=== PATIENT | female | born 1935 | race African-American/Black ===

== ENCOUNTER 2016-08-06 09:03 | Inpatient (IN) ==
[2016-08-06] MEDS ORDERED: NALOXONE 0.4 MG/ML VIAL IV STA (09:28)
[2016-08-06] MEDS ORDERED: NALOXONE 0.4 MG/ML VIAL ONE (09:29)
--- NOTE | 2016-08-06 09:57 | EKG Report ---
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
--- NOTE | 2016-08-06 10:00 | XRay Report ---
XR chest 1V portable Indication: Altered mental status Comparison: Chest x-ray 02/21/2015 Technique: Portable AP chest was performed. Findings: Somewhat asymmetric airspace disease is demonstrated involving the right mid and lower lung, but additionally the left lung base. Trace fluid is present within the minor fissure. The heart size is borderline. Atherosclerotic calcification of the aortic knob is demonstrated. Bones and soft tissues demonstrate no significant abnormalities. Vascular calcifications are not excluded within the right axillary artery. Impression: 1. Asymmetric parenchymal opacities most involving the mid and lower right lung have differential considerations including infection as well as atypical pulmonary edema. 08/06/2016 9:57 AM PROCEDURE INTERPRETED AT [facility] DEPARTMENT OF RADIOLOGY Final Report Signed by: Dr. Romaine Hooper
--- NOTE | 2016-08-06 10:02 | CT Report ---
CT head/brain wo con Indication: Altered mental status. Comparison: CT head 02/22/2015 Technique: CT of the brain was performed without administration of intravenous contrast. The CT examination was performed using one or more of the following dose reduction techniques: Automatic exposure control, adjustment of the mA and kV according to patient size, use of acute or iterative reconstruction techniques. Findings: There is no evidence of acute intracranial mass, hemorrhage, or infarction. Generalized cerebral atrophy is present. Areas of decreased attenuation within the periventricular white matter and cerebral white matter are present which could be compatible with microvascular ischemia. The basal cisterns are patent. No significant abnormality is demonstrated to involve the posterior fossa or cerebellum. Orbits and globes demonstrate no evidence of significant pathology. The paranasal sinuses are clear. No significant abnormality is demonstrated to involve the mastoid air cells. The calvarium and overlying soft tissues demonstrate no evidence of acute pathology. Previously demonstrated left occipital hematoma has resolved. Impression: 1. No CT evidence of acute intracranial pathology. 2. Generalized atrophy and findings compatible with microvascular ischemia are demonstrated. 08/06/2016 9:58 AM PROCEDURE INTERPRETED AT [facility] DEPARTMENT OF RADIOLOGY Final Report Signed by: Dr. Romaine Hooper
[2016-08-06] MEDS ORDERED: cefTRIAXone 2,000 MG in SODIUM CHLORIDE 0.9% 100 ML IV ONE (10:03)
[2016-08-06 10:57] LABS: ABG Base Excess 2.3 MMOL/L (-2.5-2.5); ABG HCO3 26.5 MMOL/L (20-26); ABG Oxygen Saturation 98.4 % (95-100); ABG PH 7.448 (7.35-7.45)
[2016-08-06 11:03] LABS: Basophils % 0.3 % (0.0-0.8); Eosinophils % 0.1 % (0.00-10.9); Hematocrit 28.5 VOL% (35.7-47.0); Hemoglobin 9.3 GM/DL (12.0-16.0); Immature Granulocytes % 1.1 %; Immature Granulocytes Absolute 0.15 #; Mean Corpuscular HGB Conc 32.6 GM/DL (32-36); Mean Corpuscular Hemoglobin 26 PG (27-34); Mean Corpuscular Volume 80.1 FL (87-102); Monocytes # 1.2 10*3/uL (0.11-0.8); Monocytes % 9.3 % (1.7-12.7); NRBC # 0.03 10*3/uL; Neutrophils # 9.9 10*3/uL (1.4-7.4); Neutrophils % 74.2 % (38.7-73.9); Platelet Count 359 T/CUMM (130-400); Red Blood Count 3.56 MC/CUMM (3.8-5.5); Red Cell Distribution Width 15.5 % (9.3-17.3); White Blood Count 13.3 T/CUMM (4-12)
[2016-08-06] MEDS ORDERED: cefTRIAXone 1,000 MG VIAL ONE (11:07)
[2016-08-06 11:23] LABS: INR 1.2; PT Patient Result 12.4 SECS; Partial Thromboplastin Time 25.9 SECS (0-40)
[2016-08-06] MEDS ORDERED: ALBUTEROL 2.5 MG/3 ML NEB RESP TX PRN (11:29)
[2016-08-06] MEDS ORDERED: ONDANSETRON 4 MG/2 ML VIAL IV PRN (11:29)
--- NOTE | 2016-08-06 11:29 | Emergency Department Note ---
Arnulfo Young Manpreet, am scribing for, and in the presence of, Eliseo Warren MD 09:30. Kelvin Young Doug C, MD, personally performed the services described in this documentation, ascribed by Hi Arredondo in my presence, and it is both accurate and complete 942 . Arrival - Arrival Chief Complaint: Altered Mental Status ED Nursing Triage Note: pt was found this am with decreased loc. pt h as o2 sats of 79 on 2l per ems Mode of Arrival: Stretcher Limitations: Altered Mental Status Source: EMS - History of Present Illness HPI Narrative: Patient is a 80-year-old black female sent to the emergency room with altered mental status. Patient apparently has had decreased responsiveness beginning today. She does have a history of dementia. There is no history of any fever or head injury. Patient is unable to provide any history whatsoever. Patient is a DNR. There is no history of any fever, respiratory or urinary symptoms according to senior care staff. Onset (ago): hour(s) Consistency: constant Severity: moderate Severity scale (1-10): 4 Allergies/Adverse Reactions: Allergies Allergy/AdvReac Type Severity Reaction Status Date / Time iodine Allergy Mild ITCHING Verified 09/26/14 13:38 Seafood Allergy Mild ITCHING Verified 09/26/14 13:38 Home Medications: Home Medications Medication Instructions Recorded Confirmed Type Aspirin EC Tab 81 mg PO DAILY 09/26/14 07/15/15 History Cholecalciferol (Vitamin D3) 5,000 unit PO DAILY 09/26/14 07/15/15 History [Vitamin D3] Docusate Sodium Cap [Colace Cap] 100 mg PO PRN PRN 09/26/14 07/15/15 History Donepezil HCl 10 mg PO BEDTIME 09/26/14 07/15/15 History Lovastatin 10 mg PO QPM 09/26/14 07/15/15 History Memantine [Namenda] 10 mg PO BID 09/26/14 07/15/15 History Multivit-Min/Iron/Folic/Lutein 1 each PO DAILY 09/26/14 07/15/15 History [Centrum Silver Women Tablet] Potassium Chloride 10 meq PO MOWEFR 09/26/14 07/15/15 History glipiZIDE [Glipizide Xl] 10 mg PO BID 09/26/14 07/15/15 History hydroCHLOROthiazide 25 mg PO DAILY 09/26/14 07/15/15 History [Hydrochlorothiazide] metFORMIN [Glucophage] 500 mg PO BID W/MEALS 09/26/14 07/15/15 History Benzonatate [Tessalon] 100 mg PO RT Q8H PRN 02/05/15 07/15/15 History Carvedilol [Coreg] 6.25 mg PO BID W/MEALS 07/15/15 07/15/15 History Isosorbide Dinitrate [Isordil] 5 mg PO TID 07/15/15 07/15/15 History Melatonin/Pyridoxine HCl (B6) 5 mg PO QPM 07/15/15 07/15/15 History [Melatonin 5 mg Tablet] Sertraline [Zoloft] 50 mg PO DAILY 07/15/15 07/15/15 History risperiDONE TAB [RisperDAL TAB] 0.5 mg PO BID 07/15/15 07/15/15 History Dextrose 50% [D50] 25 gm IV PRN PRN #0 vial 07/28/15 Rx Divalproex Sprinkle [Depakote 125 mg PO TID capsule 07/28/15 Rx Sprinkle] Gabapentin Cap/Tab [Neurontin 100 mg PO BEDTIME capsule 07/28/15 Rx Cap/Tab] Glucagon 1 mg IM PRN PRN #0 vial 07/28/15 Rx Insulin Lispro [HumaLOG] See Protocol SUBCUT BID W/MEALS ml 07/28/15 Rx LORazepam TAB [Ativan Tab] 0.5 mg PO Q8HR PRN #30 tablet 07/28/15 Rx Zaleplon [Sonata] 5 mg PO BEDTIME PRN #30 capsule 07/28/15 Rx Review of System - Review of System ROS unobtainable: due to mental status Medical,Surgical,& Family Hx - Medical History Cardio: History of: Hypertension, Cardiovascular Problems (PAD) Psychological: History of: Behavior Problems (hitting staff and wandering into other residents' rooms), Depression, Violent Behavior (hitting or combative), Psychiatric Problems (depressed mood aeb sadness, hopelessness, helplessness) No history of: Previous Suicide Attempt Neurology: History of: Cerebrovascular Accident (unknown), Dementia HEENT: History of: Eye Problem (cataract surgery approximate 2 years ago) Endocrine: History of: Diabetes Mellitus (NIDDM), Thyroid Disorder Musculoskeletal: History of: Amputation (left great toe due to circulatory problems) Reproductive: History of: Reproductive Problems (benign lumps in breasts) - Surgical History Thoracic Surgeries: Patient denies;: Organ Transplant, Lobectomy HEENT Surgeries: Surgical HX of: Tonsilectomy & Adenoidectomy - Family History Family History: Reports;: Family Cancer (1 sister breast ,1 sister back), Family Diabetes (parents,multiple siblings), Family Heart Disease (parents, multiple siblings), Family Hypertension (parents ,multiple siblings), Family Stroke (parents,multiple siblings) Denies;: Family Anesthesia Reaction - Social History Smoking Status: Never smoker Frequency of Alcohol Use: None Type of Drug Use: None Exam Vital Signs: Vital Signs Temperature 96.8 F L 08/06/16 09:15 Pulse Rate 67 08/06/16 09:15 Respiratory Rate 14 08/06/16 09:46 Blood Pressure 98/64 08/06/16 09:15 O2 Sat by Pulse Oximetry 96 08/06/16 09:15 - General Exam limited due to: ALOC, other (Patient is a GCS of 3.) General appearance: obtunded - Head Head exam: Present: atraumatic, normocephalic, normal inspection - Eye Eye exam: Present: other (Patient has negative doll's eyes.). Absent: normal appearance, PERRL (Pinpoint pupils OU) - ENT ENT exam: Present: normal exam, normal oropharynx, mucous membranes moist - Neck Neck exam: Present: normal inspection, full ROM, trachea midline. Absent: tenderness, thyromegaly - Chest Chest inspection: Present: normal inspection, symmetric chest wall rise. Absent : tenderness - Respiratory Respiratory exam: Present: normal lung sounds bilaterally. Absent: accessory muscle use, respiratory distress - Cardiovascular Cardiovascular exam: Present: regular rate, normal rhythm, normal heart sounds - Abdominal Exam Abdominal exam: Present: soft, psoas sign. Absent: distention, tenderness - Extremities Exam Extremities exam: Present: normal inspection, full ROM - Neurological Exam Neurological exam: Present: CN II-XII intact. Absent: alert, oriented X3 - Psychiatric Psychiatric exam: Present: other (Unresponsive) - Skin Skin exam: Present: warm, dry, intact, normal color. Absent: pallor Results - Labs CBC & BMP: 08/06/16 10:43 Lab Results: I have reviewed the patients labs Labs: Laboratory Tests 08/06/16 10:50 ABG pH 7.448 ABG pCO2 38.0 ABG pO2 102.0 H ABG HCO3 26.5 H ABG Total CO2 24.0 Laboratory Tests 08/06/16 10:43 WBC 13.3 H RBC 3.56 L Hgb 9.3 L Hct 28.5 L MCV 80.1 L MCH 26 L Neut % (Auto) 74.2 H Lymph % (Auto) 15.0 L Neut # (Auto) 9.9 H Kerr # (Auto) 1.2 H - EKG EKG results: interpreted by CHUCHO, sinus rhythm (86 bpm) - Impressions Right bundle branch block - Diagnostic Findings Procedure: Chest x-ray: report reviewed by me (1. Asymmetric parenchymal opacities most involving the mid and lower right lung have differential considerations including infection as well as atypical pulmonary edema.), CT: report reviewed by me (CT Head: 1. No CT evidence of acute intracranial pathology. 2> Generalized atrophy and findings complatible with microvascular ischemia are demonstarted.) Disposition Clinical Impression: Pneumonia, Metabolic encephalopathy, Severe dementia Case discussed with: patient's family Disposition: Still a Patient Condition: Guarded Time of Disposition: 11:28
[2016-08-06 11:35] LABS: Albumin 2.6 G/DL (3.4-5.0); Bilirubin,Total 0.5 MG/DL (0.2-1.0); Calcium 8.9 MG/DL (8.5-10.1); Osmolality,Calculated 292.8 MOS/KG (273-304); Potassium 3.7 MMOL/L (3.5-5.1); Total Protein 6.2 G/DL (6.4-8.3)
[2016-08-06 11:42] LABS: Troponin I Only 8.63 NG/ML (0.00-0.045)
[2016-08-06] MEDS: cefTRIAXone 1,000 MG in SODIUM CHLORIDE 0.9% 100 ML IV SCH (12:46)
[2016-08-06] MEDS: SODIUM CHLORIDE 0.45% 1,000 ML IV SCH (13:30)
[2016-08-06] MEDS: AZITHROMYCIN INJ 500 MG in SODIUM CHLORIDE 0.9% 250 ML IV SCH (13:47)
[2016-08-06] MEDS ORDERED: FUROSEMIDE 20 MG/2 ML VIAL IV ONE (14:55)
--- NOTE | 2016-08-06 15:38 | Family Practice History&Phys ---
Assessment and Plan (1) Elevated troponin Status: Acute Assessment and plan: 08/06/2016 because there is reasonably high we will going to cardiology but strictly for medical management only. Current Visit: Yes (2) Metabolic encephalopathy Status: Acute Assessment and plan: 07/07/2016 on sure of patient's normal mental status. Hopefully she will turn around with the current regimen of Current Visit: Yes (3) Pneumonia Status: Acute Assessment and plan: 08/06/2016: We are going to treat her with some medications for this. Current Visit: Yes (4) Severe dementia Status: Acute Current Visit: Yes History of Present Illness Chief complaint: Altered mental status, right pneumonia with pulmonary edema History of present illness: Ms. Cunha is a 80 year old female Came in with altered mental status. She is a DNR a patient of Dr. Eliseo Warren from the longterm. She was noted to have worsening dementia and it was felt that she may have had some hypoxia. There is a question also of right lobe pneumonia for which she is being treated. A CT scan of the head was negative. It was noted subsequent to transferring [place] that her troponin was elevated to about 8.6. Certainly could have had some myocardial ischemia or this could be related to some congestive heart failure. She is noted to be having rales at this time. Will get cardiology to hopefully manage her strictly medically considering her poor quality of life. I did go ahead and give her some Lasix to see if we could offload her a little bit. I will repeat one more set of isoenzymes in a few hours. Home Medications Medication Instructions Recorded Confirmed Type Aspirin EC Tab 81 mg PO DAILY 09/26/14 08/06/16 History Donepezil HCl 10 mg PO BEDTIME 09/26/14 08/06/16 History Lovastatin 10 mg PO BEDTIME 09/26/14 08/06/16 History Memantine [Namenda] 10 mg PO BID 09/26/14 08/06/16 History Multivit-Min/Iron/Folic/Lutein 1 each PO DAILY 09/26/14 08/06/16 History [Centrum Silver Women Tablet] Potassium Chloride 10 meq PO MOWEFR 09/26/14 08/06/16 History glipiZIDE [Glipizide Xl] 10 mg PO BID 09/26/14 08/06/16 History hydroCHLOROthiazide 12.5 mg PO DAILY 09/26/14 08/06/16 History [Hydrochlorothiazide] metFORMIN [Glucophage] 500 mg PO BID W/MEALS 09/26/14 08/06/16 History Benzonatate [Tessalon] 100 mg PO Q8HR PRN 02/05/15 08/06/16 History Carvedilol [Coreg] 6.25 mg PO BID W/MEALS 07/15/15 08/06/16 History Isosorbide Dinitrate [Isordil] 5 mg PO TID 07/15/15 08/06/16 History Divalproex Sprinkle [Depakote 125 mg PO TID capsule 07/28/15 08/06/16 Rx Sprinkle] LORazepam TAB [Ativan Tab] 0.5 mg PO Q8HR PRN #30 tablet 07/28/15 08/06/16 Rx Zaleplon [Sonata] 5 mg PO BEDTIME PRN #30 capsule 07/28/15 08/06/16 Rx Amoxicillin Cap/Tab 500 mg PO TID 08/06/16 08/06/16 History Cholecalciferol (Vitamin D3) 1,000 unit PO DAILY 08/06/16 08/06/16 History [Vitamin D3 Chew Tab] Cilostazol [Pletal] 100 mg PO BID 08/06/16 08/06/16 History Docusate Sodium 100 mg PO DAILY 08/06/16 08/06/16 History Duloxetine HCl [Duloxetine] 20 mg PO DAILY 08/06/16 08/06/16 History Gabapentin Cap/Tab [Neurontin 200 mg PO BEDTIME 08/06/16 08/06/16 History Cap/Tab] Hydrocodone/Acetaminophen 0.5 tablet PO TID 08/06/16 08/06/16 History [Hydrocodon-Acetaminophen 5-325] Melatonin 5 mg PO BEDTIME 08/06/16 08/06/16 History OLANZapine TAB [ZyPREXA Tab] 2.5 mg PO DAILY 08/06/16 08/06/16 History OLANZapine [Olanzapine] 7.5 mg PO BEDTIME 08/06/16 08/06/16 History Allergies Allergy/AdvReac Type Severity Reaction Status Date / Time iodine Allergy Mild ITCHING Verified 09/26/14 13:38 Seafood Allergy Mild ITCHING Verified 09/26/14 13:38 12 point system: reviewed and no additional remarkable complaints except as stated (Those mentioned in the history and physical. The patient is totally unresponsive and unable to give any information. The family was not in the room ) Medical,Surgical,& Family Hx - Medical History Cardio: History of: Hypertension, Cardiovascular Problems (PAD) Psychological: History of: Behavior Problems (hitting staff and wandering into other residents' rooms), Depression, Violent Behavior (hitting or combative), Psychiatric Problems (depressed mood aeb sadness, hopelessness, helplessness) No history of: Previous Suicide Attempt Neurology: History of: Cerebrovascular Accident (unknown), Dementia HEENT: History of: Eye Problem (cataract surgery approximate 2 years ago) Endocrine: History of: Diabetes Mellitus (NIDDM), Thyroid Disorder Musculoskeletal: History of: Amputation (left great toe due to circulatory problems. Right great toe amputation) Reproductive: History of: Reproductive Problems (benign lumps in breasts) - Surgical History Thoracic Surgeries: Patient denies;: Organ Transplant, Lobectomy HEENT Surgeries: Surgical HX of: Tonsilectomy & Adenoidectomy - Family History Family History: Reports;: Family Cancer (1 sister breast ,1 sister back), Family Diabetes (parents,multiple siblings), Family Heart Disease (parents, multiple siblings), Family Hypertension (parents ,multiple siblings), Family Stroke (parents,multiple siblings) Denies;: Family Anesthesia Reaction - Social History Smoking Status: Never smoker Frequency of Alcohol Use: None Type of Drug Use: None Exam - Constitutional Vitals: Period Temp Pulse Resp BP Sys/Alba Pulse Ox Last 24 Hr 96.8 F 97-97 18-23 124-150/80-81 93-100 Exam: Generally patient is obtunded not responding except moving her right arm indiscriminately HEENT neck is supple trachea midline no respiratory stridor Cardiovascular rate is somewhat irregular sinus arrhythmia. She has 1/6 systolic ejection murmur Lungs few basilar rales but no respiratory distress Abdomen is without any apparent Neurologically unable to assess tenderness, there is no distention Extremities no clubbing cyanosis or edema Results - Labs CBC & BMP: 08/06/16 10:43 08/06/16 10:43
[2016-08-06] MEDS: INSULIN LISPRO 100 UNIT/ML SUBCUT SCH (15:54)
[2016-08-06] MEDS: POTASSIUM CHLORIDE RIDER 10 MEQ in PREMIX 1 EACH IV SCH ×2 (17:08→18:45)
[2016-08-06 17:45] LABS: CKMB % 2.5 %
--- NOTE | 2016-08-06 18:23 | Cardiology Consult Note ---
History of Present Illness - Data of Consult Patient: new to practice - Consult Narrative History of present illness: Cardiology consult 80-year-old woman from the [facility] with advanced dementia admitted with altered mental status weakness and shortness of breath. EKG shows sinus rhythm with left axis deviation, right bundle branch block and ST-T wave changes. Chest x-ray shows cardiomegaly with congestive heart failure and probable right middle lobe pneumonia. BNP level 749. Initial troponin 8.63. CPK 2498 and second troponin 16.0. The patient is unresponsive. I called her primary physician Dr. Eliseo Warren and discussed the case with him. This patient is a DNR and has advanced dementia. She has no quality of life. The patient will be treated conservatively with aspirin and beta-alvaro. She does have chronic hypertension. She is a type II diabetic and takes glyburide and Glucophage. She takes Namenda and Zyprexa for her dementia. She also takes duloxetine for depression. Lab data White count 13.3 with left shift Hemoglobin 9.3 hematocrit 28.5 Sodium 144 potassium 3.7 chloride 107 CO2 26 BUN 13 creatinine 1.50 Glucose 303 ammonia 34 BNP 749 CPK 2498 with troponin XVI 0.0 EKG shows sinus rhythm with bifascicular block and ST-T wave changes. Blood pressure 130/80 Pulse is 84 and regular O2 sat 100% on 2 L the patient is unresponsive except to deep pain. Bilateral arcus decreased breath sounds with coarse rhonchi bilaterally regular rhythm with soft systolic ejection upper right sternal border. Abdomen benign nontender. Femoral pulses 2+ with left bruit. Distal pulses 1+ no edema. Impression 80-year-old woman from the custodial with advanced dementia Presents with non-Q wave MA with congestive heart failure Bifascicular block on EKG Right mid lung pneumonia Chronic hypertension Type 2 diabetes Hyperlipidemia Patient unresponsive at this time Plan IV antibiotics and nebs Aspirin 81 mg daily Lopressor 50 mg daily . CC: Eliseo Warren MD - Home Medications and Allergies Home Medications: Home Medications Medication Instructions Recorded Confirmed Type Aspirin EC Tab 81 mg PO DAILY 09/26/14 08/06/16 History Donepezil HCl 10 mg PO BEDTIME 09/26/14 08/06/16 History Lovastatin 10 mg PO BEDTIME 09/26/14 08/06/16 History Memantine [Namenda] 10 mg PO BID 09/26/14 08/06/16 History Multivit-Min/Iron/Folic/Lutein 1 each PO DAILY 09/26/14 08/06/16 History [Centrum Silver Women Tablet] Potassium Chloride 10 meq PO MOWEFR 09/26/14 08/06/16 History glipiZIDE [Glipizide Xl] 10 mg PO BID 09/26/14 08/06/16 History hydroCHLOROthiazide 12.5 mg PO DAILY 09/26/14 08/06/16 History [Hydrochlorothiazide] metFORMIN [Glucophage] 500 mg PO BID W/MEALS 09/26/14 08/06/16 History Benzonatate [Tessalon] 100 mg PO Q8HR PRN 02/05/15 08/06/16 History Carvedilol [Coreg] 6.25 mg PO BID W/MEALS 07/15/15 08/06/16 History Isosorbide Dinitrate [Isordil] 5 mg PO TID 07/15/15 08/06/16 History Divalproex Sprinkle [Depakote 125 mg PO TID capsule 07/28/15 08/06/16 Rx Sprinkle] LORazepam TAB [Ativan Tab] 0.5 mg PO Q8HR PRN #30 tablet 07/28/15 08/06/16 Rx Zaleplon [Sonata] 5 mg PO BEDTIME PRN #30 capsule 07/28/15 08/06/16 Rx Amoxicillin Cap/Tab 500 mg PO TID 08/06/16 08/06/16 History Cholecalciferol (Vitamin D3) 1,000 unit PO DAILY 08/06/16 08/06/16 History [Vitamin D3 Chew Tab] Cilostazol [Pletal] 100 mg PO BID 08/06/16 08/06/16 History Docusate Sodium 100 mg PO DAILY 08/06/16 08/06/16 History Duloxetine HCl [Duloxetine] 20 mg PO DAILY 08/06/16 08/06/16 History Gabapentin Cap/Tab [Neurontin 200 mg PO BEDTIME 08/06/16 08/06/16 History Cap/Tab] Hydrocodone/Acetaminophen 0.5 tablet PO TID 08/06/16 08/06/16 History [Hydrocodon-Acetaminophen 5-325] Melatonin 5 mg PO BEDTIME 08/06/16 08/06/16 History OLANZapine TAB [ZyPREXA Tab] 2.5 mg PO DAILY 08/06/16 08/06/16 History OLANZapine [Olanzapine] 7.5 mg PO BEDTIME 08/06/16 08/06/16 History Allergies/Adverse Reactions: Allergies Allergy/AdvReac Type Severity Reaction Status Date / Time iodine Allergy Mild ITCHING Verified 09/26/14 13:38 Seafood Allergy Mild ITCHING Verified 09/26/14 13:38 Medical,Surgical,& Family Hx - Medical History Cardio: History of: Hypertension, Cardiovascular Problems (PAD) Psychological: History of: Behavior Problems (hitting staff and wandering into other residents' rooms), Depression, Violent Behavior (hitting or combative), Psychiatric Problems (depressed mood aeb sadness, hopelessness, helplessness) No history of: Previous Suicide Attempt Neurology: History of: Cerebrovascular Accident (unknown), Dementia HEENT: History of: Eye Problem (cataract surgery approximate 2 years ago) Endocrine: History of: Diabetes Mellitus (NIDDM), Thyroid Disorder Musculoskeletal: History of: Amputation (left great toe due to circulatory problems. Right great toe amputation) Reproductive: History of: Reproductive Problems (benign lumps in breasts) - Surgical History Thoracic Surgeries: Patient denies;: Organ Transplant, Lobectomy HEENT Surgeries: Surgical HX of: Tonsilectomy & Adenoidectomy - Family History Family History: Reports;: Family Cancer (1 sister breast ,1 sister back), Family Diabetes (parents,multiple siblings), Family Heart Disease (parents, multiple siblings), Family Hypertension (parents ,multiple siblings), Family Stroke (parents,multiple siblings) Denies;: Family Anesthesia Reaction - Social History Smoking Status: Never smoker Frequency of Alcohol Use: None Type of Drug Use: None Physical Examination Vital Signs Temp Pulse Resp BP Pulse Ox 96.8 F L 67 18 98/64 96 08/06/16 09:15 08/06/16 09:15 08/06/16 09:15 08/06/16 09:15 08/06/16 09:15 Result/EKG - Labs CBC & BMP: 08/06/16 10:43 08/06/16 10:43 Labs: Laboratory Results - last 24 hr 08/06/16 08/06/16 08/06/16 13:11 15:26 15:50 POC Glucose 262 H 303 H 303 H Total Creatine Kinase CK-MB (CK-2) CK and CKMB Interp Troponin I 08/06/16 17:08 POC Glucose Total Creatine Kinase 2498 H CK-MB (CK-2) 61.7 H CK and CKMB Interp 2.5 Troponin I 16.000 H D
[2016-08-06] MEDS ORDERED: METOPROLOL TARTRATE 5 MG/5 ML VIAL IV ONE (19:01)
[2016-08-06] MEDS ORDERED: ASPIRIN 300 MG SUPP RECTAL ONE (19:01)
[2016-08-06] MEDS: ALBUTEROL/IPRATROPIUM 3 ML NEB RESP TX SCH (19:21)
[2016-08-06] MEDS: NITROGLYCERIN 2% OINT 1 INCH/GM PACK TOP SCH (22:00)
[2016-08-07] MEDS: ALBUTEROL/IPRATROPIUM 3 ML NEB RESP TX SCH ×4 (01:21→19:45)
[2016-08-07 01:55] LABS: Calcium 8.8 MG/DL (8.5-10.1); Osmolality,Calculated 296.8 MOS/KG (273-304); Potassium 4.2 MMOL/L (3.5-5.1)
[2016-08-07 01:56] LABS: CKMB % 2.4 %
[2016-08-07 01:59] LABS: Troponin I Only 21.5 NG/ML (0.00-0.045)
[2016-08-07] MEDS: MORPHINE 2 MG/1 ML SYRINGE IV PRN ×3 (04:29→23:06)
[2016-08-07 06:21] LABS: Basophils % 0.2 % (0.0-0.8); Hematocrit 29.8 VOL% (35.7-47.0); Hemoglobin 9.7 GM/DL (12.0-16.0); Immature Granulocytes % 1.7 %; Immature Granulocytes Absolute 0.22 #; Lymphocytes # 1.5 10*3/uL (1.4-4.0); Lymphocytes % 11.3 % (21.3-54.2); Mean Corpuscular HGB Conc 32.6 GM/DL (32-36); Mean Corpuscular Hemoglobin 26 PG (27-34); Mean Corpuscular Volume 79.7 FL (87-102); Mean Platelet Volume 11.4 FL (9.6-12.0); Monocytes # 1.3 10*3/uL (0.11-0.8); Monocytes % 10.1 % (1.7-12.7); NRBC # 0.08 10*3/uL; Neutrophils # 10.2 10*3/uL (1.4-7.4); Neutrophils % 76.7 % (38.7-73.9); Platelet Count 369 T/CUMM (130-400); Red Blood Count 3.74 MC/CUMM (3.8-5.5); Red Cell Distribution Width 15.7 % (9.3-17.3); White Blood Count 13.3 T/CUMM (4-12)
[2016-08-07] MEDS: INSULIN LISPRO 100 UNIT/ML SUBCUT SCH ×5 (06:59→21:21)
[2016-08-07 07:04] LABS: CKMB % 2.3 %
[2016-08-07 07:08] LABS: Troponin I Only 21.7 NG/ML (0.00-0.045)
[2016-08-07] MEDS: SODIUM CHLORIDE 0.45% 1,000 ML IV SCH ×2 (07:26→07:27)
[2016-08-07] MEDS: PANTOPRAZOLE 40 MG VIAL IV SCH (08:51)
[2016-08-07] MEDS: ASPIRIN 300 MG SUPP RECTAL SCH (08:52)
[2016-08-07] MEDS: NITROGLYCERIN 2% OINT 1 INCH/GM PACK TOP SCH ×3 (08:52→21:22)
--- NOTE | 2016-08-07 08:55 | Family Practice Progress Note ---
Family Practice - PN: Subj Interval history: Patient seen this morning. in the room. She remains unresponsive except to deep pain. She is unable to take p.o. medications am therefore going to discontinue them. Her blood pressure is up and will increase her frequency of Lopressor to twice daily and also increase her Nitropaste 1 inch every 12 hours. It is noted her cardiac causes did bump but we are going to treat her palliatively. I did discuss her this with her and he was in total agreement. Her blood sugars are running high as well and we will increase her sliding scale from a medium to high. Appreciate cardiology's assistance on this case Exam (Progress Note) - Constitutional Vitals: Period Temp Pulse Resp BP Sys/Alba Pulse Ox Last 24 Hr 96.8 F-97.7 F 72-119 2-40 124-150/73-113 85-119 Exam: Generally patient is obtunded not responding except moving her right arm indiscriminately HEENT neck is supple trachea midline no respiratory stridor Cardiovascular rate is somewhat irregular sinus arrhythmia. She has 1/6 systolic ejection murmur Lungs few basilar rales Abdomen is without any apparent Neurologically unable to assess tenderness, there is no distention Extremities no clubbing cyanosis or edema Results - Labs CBC & BMP: 08/07/16 05:52 08/07/16 01:01 Assessment and Plan (1) Elevated troponin Status: Acute Assessment and plan: 08/06/2016 because there is reasonably high we will going to cardiology but strictly for medical management only. 08/07/2016. Ices did bump but we are going to only treat her medically and a palliative way. She is unable to take any p.o. medications at this time Current Visit: Yes (2) Metabolic encephalopathy Status: Acute Assessment and plan: 07/07/2016 on sure of patient's normal mental status. Hopefully she will turn around with the current regimen of Current Visit: Yes (3) Pneumonia Status: Acute Assessment and plan: 08/06/2016: We are going to treat her with some medications for this. Current Visit: Yes (4) Severe dementia Status: Acute Current Visit: Yes
[2016-08-07] MEDS ORDERED: METOPROLOL TARTRATE 5 MG/5 ML VIAL IV SCH (09:00)
[2016-08-07] MEDS: cefTRIAXone 1,000 MG in SODIUM CHLORIDE 0.9% 100 ML IV SCH (10:40)
[2016-08-07] MEDS: ENOXAPARIN 30 MG/0.3 ML SYRINGE SUBCUT SCH (10:40)
[2016-08-07 12:26] LABS: CKMB % 2.4 %
[2016-08-07 12:27] LABS: Troponin I Only 23.3 NG/ML (0.00-0.045)
--- NOTE | 2016-08-07 12:58 | Cardiology Progress Note ---
Cardiology - PN: Subj Interval history: Cardiology note 80-year-old woman with advanced dementia, [facility]. Admitted with non-Q-wave NM. Patient is a DNR . O2 sat 98% on 2 L Blood pressure 96/60 Patient is unresponsive to verbal commands Decreased breath sounds with bibasilar rhonchi Regular rhythm with soft systolic murmur upper right sternal border Abdomen benign No leg edema Lab data White count 13.3 hemoglobin 9.7 hematocrit 29.8 Peak CPK 2360 Peak troponin 23 Impression 80-year-old woman from the long term with advanced dementia Presents with non-Q-wave NM with congestive heart failure Bifascicular block on EKG Right mid lung pneumonia Chronic hypertension Type 2 diabetes Hyperlipidemia Patient unresponsive Plan Aspirin 81 mg Lopressor 50 mg IV antibiotics and nebs Echo pending Exam (Progress Note) - Constitutional Vitals: Period Temp Pulse Resp BP Sys/Alba Pulse Ox Last 24 Hr 97.2 F-97.7 F 72-119 2-40 87-147/54-113 85-119 Result/EKG - Labs CBC & BMP: 08/07/16 05:52 08/07/16 01:01 Labs: Laboratory Results - last 24 hr 08/06/16 08/06/16 08/06/16 13:11 15:26 15:50 WBC RBC Hgb Hct MCV MCH MCHC RDW Plt Count MPV Neut % (Auto) Lymph % (Auto) [place] % (Auto) Eos % (Auto) Baso % (Auto) Neut # (Auto) Lymph # (Auto) [place] # (Auto) Eos # (Auto) Baso # (Auto) Immature Gran % Nucleated RBC % Immature Gran # Nucleated RBCs # Sodium Potassium Chloride Carbon Dioxide Anion Gap BUN Creatinine GFR Calculation BUN/Creatinine Ratio Glucose POC Glucose 262 H 303 H 303 H Calculated Osmolality Calcium Total Creatine Kinase CK-MB (CK-2) CK and CKMB Interp Troponin I 08/06/16 08/06/16 08/07/16 17:08 20:02 01:01 WBC RBC Hgb Hct MCV MCH MCHC RDW Plt Count MPV Neut % (Auto) Lymph % (Auto) [place] % (Auto) Eos % (Auto) Baso % (Auto) Neut # (Auto) Lymph # (Auto) [place] # (Auto) Eos # (Auto) Baso # (Auto) Immature Gran % Nucleated RBC % Immature Gran # Nucleated RBCs # Sodium Potassium Chloride Carbon Dioxide Anion Gap BUN Creatinine GFR Calculation BUN/Creatinine Ratio Glucose POC Glucose 274 H Calculated Osmolality Calcium Total Creatine Kinase 2498 H 2360 H CK-MB (CK-2) 61.7 H 56.9 H CK and CKMB Interp 2.5 2.4 Troponin I 16.000 H D 21.500 H D 08/07/16 08/07/16 08/07/16 01:01 05:52 05:52 WBC 13.3 H RBC 3.74 L Hgb 9.7 L Hct 29.8 L MCV 79.7 L MCH 26 L MCHC 32.6 RDW 15.7 Plt Count 369 MPV 11.4 Neut % (Auto) 76.7 H Lymph % (Auto) 11.3 L [place] % (Auto) 10.1 Eos % (Auto) 0.0 Baso % (Auto) 0.2 Neut # (Auto) 10.2 H Lymph # (Auto) 1.5 [place] # (Auto) 1.3 H Eos # (Auto) 0.0 Baso # (Auto) 0.0 Immature Gran % 1.7 Nucleated RBC % 0.6 Immature Gran # 0.22 Nucleated RBCs # 0.08 Sodium 144 Potassium 4.2 Chloride 107 Carbon Dioxide 22 Anion Gap 19.2 H BUN 18 Creatinine 2.10 H GFR Calculation 26 BUN/Creatinine Ratio 8.00 Glucose 267 H POC Glucose Calculated Osmolality 296.8 Calcium 8.8 Total Creatine Kinase 2106 H CK-MB (CK-2) 48.5 H D CK and CKMB Interp 2.3 Troponin I 21.700 H 08/07/16 08/07/16 08/07/16 07:36 11:34 12:29 WBC RBC Hgb Hct MCV MCH MCHC RDW Plt Count MPV Neut % (Auto) Lymph % (Auto) [place] % (Auto) Eos % (Auto) Baso % (Auto) Neut # (Auto) Lymph # (Auto) [place] # (Auto) Eos # (Auto) Baso # (Auto) Immature Gran % Nucleated RBC % Immature Gran # Nucleated RBCs # Sodium Potassium Chloride Carbon Dioxide Anion Gap BUN Creatinine GFR Calculation BUN/Creatinine Ratio Glucose POC Glucose 339 H 317 H Calculated Osmolality Calcium Total Creatine Kinase 1704 H CK-MB (CK-2) 41.2 H D CK and CKMB Interp 2.4 Troponin I 23.300 H
[2016-08-07] MEDS: AZITHROMYCIN INJ 500 MG in SODIUM CHLORIDE 0.9% 250 ML IV SCH (13:50)
--- NOTE | 2016-08-07 14:28 | ECHO Report ---
Dwight Cunha Exam Date: 08/07/2016 08:37 Referring Physician: Technologist: Radha Rangel RDCS Age: 80 Ht (in): 66 Wt (lb): 150 Gender: F Exam Location: [facility] Echo Indications: Altered mental status, Advanced dementia, Weakness, Shortness of breath, Non-ST elevation (NSTEMI) myocardial infarction, Heart failure, unspecified, Hyperlipidemia, unspecified, Essential (primary) hypertension, NIDDM, RML pneumonia BP: 125 / 82 HR: 118 Rhythm: Sinus Technical Quality: Fair IMPRESSIONS EF 20 %, severe global hypokinesis. Grade III/IV diastolic dysfunction (restrictive filling pattern), severely elevated filling pressures. The right ventricle is normal in size and function. Moderately increased right atrial size. Moderately increased left atrial size. Mildly thickened mitral valve. Moderate mitral annular calcification. Mild mitral valve regurgitation. Aortic valve sclerosis. Trace to mild aortic valve regurgitation. Severe tricuspid valve regurgitation. PAP60 mmHG. Trace pulmonary valve regurgitation. Normal pericardium without effusion. Normal ascending aorta dimension. Left pleural effusion. MEASUREMENTS (Male / Female) Normal Values 2D ECHO LV Diastolic Diameter PLAX 5.1 cm 4.2 - 5.9 / 3.9 - 5.3 cm LV Systolic Diameter PLAX 4.6 cm LV Fractional Shortening PLAX 9.6 % IVS Diastolic Thickness 0.8 cm 0.6 - 1.0 / 0.6 - 0.9 cm LVPW Diastolic Thickness 0.8 cm 0.6 - 1.0 / 0.6 - 0.9 cm RV Internal Dim ED PLAX 3.4 cm Aortic Root Diameter 2.7 cm LA Systolic Diameter LX 4.3 cm 3.0 - 4.0 / 2.7 - 3.8 cm DOPPLER TR Peak Velocity 350.0 cm/s TR Peak Gradient 49.0 mmHg FINDINGS Left Ventricle EF 20 %, severe global hypokinesis. Grade III/IV diastolic dysfunction (restrictive filling pattern), severely elevated filling pressures. Right Ventricle The right ventricle is normal in size and function. Right Atrium Moderately increased right atrial size. Left Atrium Moderately increased left atrial size. Mitral Valve Mildly thickened mitral valve. Moderate mitral annular calcification. Mild mitral valve regurgitation. Aortic Valve Aortic valve sclerosis. Trace to mild aortic valve regurgitation. Tricuspid Valve Morphologically normal tricuspid valve. Severe tricuspid valve regurgitation. PAP60 mmHG. Pulmonic Valve Pulmonic valve not well visualized. Trace pulmonary valve regurgitation. Pericardium Normal pericardium without effusion. Aorta Normal ascending aorta dimension. Lino Armstrong (Electronically Signed) Final Date: 07 Aug 2016 14:27
[2016-08-07] MEDS: METOPROLOL TARTRATE 5 MG/5 ML VIAL IV SCH ×2 (16:15→21:01)
[2016-08-08] MEDS: ALBUTEROL/IPRATROPIUM 3 ML NEB RESP TX SCH ×4 (00:10→19:52)
[2016-08-08] MEDS: METOPROLOL TARTRATE 5 MG/5 ML VIAL IV SCH ×3 (05:40→21:06)
--- NOTE | 2016-08-08 07:12 | Family Practice Progress Note ---
Family Practice - PN: Subj Interval history: Patient had a decent night according to her and seems to be breathing okay. She is still minimally responsive and obviously not able to take anything by mouth. A swallowing study will be ordered and I am going to repeat her chest x-ray as well. Her understands the critical nature of her illness. She is probably going to need PEG tube and I have consult to Dr. Baker but Mr. Cunha's son is going to be in touch with him today and they will discuss tube feedings. Exam (Progress Note) - Constitutional Vitals: Period Temp Pulse Resp BP Sys/Alba Pulse Ox Last 24 Hr 97.0 F-98.1 F 78-121 16-27 87-129/54-99 85-100 Exam: Objectively well-developed black female who is minimally responsive she did open her eyes wants but does not follow any commands. She was ambulatory at the senior care. Cardiovascular: Heart rates rapid but there is a 2-3 over systolic ejection murmur left base. Respiratory: She has bibasilar rales. Abdomen: Abdomen soft and nontender to palpation. Results - Labs CBC & BMP: 08/07/16 05:52 08/07/16 01:01 Lab Results: I have reviewed the past 24 hour labs Assessment and Plan (1) Non-STEMI (non-ST elevated myocardial infarction) Status: Acute Assessment and plan: 08/08/2016: Patient's blood pressure is well maintained. She did have decreased EF of 20% on echocardiogram yesterday. Patient understands the critical nature of her present illness. Current Visit: Yes (2) Pneumonia Status: Acute Assessment and plan: 08/08/2016: We will repeat chest x-ray today. Blood cultures are negative thus far. Current Visit: Yes (3) Severe dementia Status: Chronic Current Visit: Yes
--- NOTE | 2016-08-08 08:23 | XRay Report ---
Referring Physician: Vito Warren Exam: XR chest 1V portable Date: August 08, 2016 at 7:06 AM Reason: Acute dyspnea/shortness of breath Comparison: Chest one view portable August 06, 2016 Findings: The cardiac silhouette is again mildly enlarged. There are opacities within the mid and lower lung zones bilaterally. This is concerning for pulmonary edema and atelectasis, but there could also be pneumonia. No pneumothorax is identified, but there is mild to moderate bilateral pleural fluid. The osseous structures appear stable. Impression: The pulmonary opacities and pleural fluid have increased bilaterally. This is concerning for pulmonary edema and atelectasis, but there could also be pneumonia. PROCEDURE INTERPRETED AT [facility] DEPARTMENT OF RADIOLOGY Final Report Signed by: Dr. Dasha Torres
--- NOTE | 2016-08-08 08:58 | EKG Report ---
Stationary ECG Study [facility] Test Date: 08/08/2016 8:57:39 AM Pat Name: AMY TODD Department: Room: 216 Gender: F Nonprofit Director: OVIDIO : [id number] Requested by: Mony Alexis Order Number: [id number] Reading MD: NATALIA STODDARD Intervals [place] Rate: 122 P: 99 [place]: 167 QRS: -52 QRSD: 102 T: 137 QT: 432 QTc: 505 Interpretive Statements SINUS TACHYCARDIA WITH FREQUENT PREMATURE COMPLEXES (VENTRICULAR vs SUPRAVENTRICULAR) MARKED LEFT AXIS DEVIATION LOW QRS VOLTAGE IN PRECORDIAL LEADS INCOMPLETE RIGHT BUNDLE BRANCH BLOCK MODERATE T-WAVE ABNORMALITY, CONSIDER LATERAL ISCHEMIA BASELINE ARTIFACT. Electronically Signed On 08-08-16 11:50:51 CDT by NATALIA STODDARD [email or web address]
[2016-08-08] MEDS: INSULIN LISPRO 100 UNIT/ML SUBCUT SCH ×4 (09:08→21:00)
[2016-08-08] MEDS: SODIUM CHLORIDE 0.45% 1,000 ML IV SCH (09:09)
[2016-08-08] MEDS: ASPIRIN 300 MG SUPP RECTAL SCH (09:10)
[2016-08-08] MEDS: NITROGLYCERIN 2% OINT 1 INCH/GM PACK TOP SCH ×2 (09:10→21:07)
[2016-08-08] MEDS: cefTRIAXone 1,000 MG in SODIUM CHLORIDE 0.9% 100 ML IV SCH (09:10)
[2016-08-08] MEDS: PANTOPRAZOLE 40 MG VIAL IV SCH (09:10)
[2016-08-08] MEDS: ENOXAPARIN 30 MG/0.3 ML SYRINGE SUBCUT SCH (09:10)
[2016-08-08 09:13] LABS: Basophils % 0.2 % (0.0-0.8); Hematocrit 31.6 VOL% (35.7-47.0); Hemoglobin 10.6 GM/DL (12.0-16.0); Immature Granulocytes % 1.1 %; Lymphocytes # 2.1 10*3/uL (1.4-4.0); Lymphocytes % 11.5 % (21.3-54.2); Mean Corpuscular HGB Conc 33.5 GM/DL (32-36); Mean Corpuscular Hemoglobin 26 PG (27-34); Mean Corpuscular Volume 78.4 FL (87-102); Mean Platelet Volume 10.7 FL (9.6-12.0); Monocytes # 2.8 10*3/uL (0.11-0.8); Monocytes % 15.3 % (1.7-12.7); NRBC # 0.73 10*3/uL; Neutrophils # 13.2 10*3/uL (1.4-7.4); Neutrophils % 71.9 % (38.7-73.9); Platelet Count 378 T/CUMM (130-400); Red Blood Count 4.03 MC/CUMM (3.8-5.5); Red Cell Distribution Width 15.7 % (9.3-17.3); White Blood Count 18.3 T/CUMM (4-12)
[2016-08-08] MEDS: AZITHROMYCIN 250 MG TABLET PO SCH (09:48)
--- NOTE | 2016-08-08 09:51 | Cardiology Progress Note ---
Jake Young Vanessa, RN, am scribing for, and in the presence of, Mony Alexis MD 09:16. Assessment and Plan - Time spent with patient Time spent with patient: Greater than 30 minutes (1) Non-STEMI (non-ST elevated myocardial infarction) Status: Acute Assessment and plan: SEE PLAN OF CARE LISTED BELOW. Current Visit: Yes (2) Hypertension Status: Chronic Assessment and plan: SEE PLAN OF CARE LISTED BELOW. Current Visit: No (3) Diabetes Status: Chronic Assessment and plan: SEE PLAN OF CARE LISTED BELOW. Current Visit: No (4) Anemia Status: Acute Assessment and plan: SEE PLAN OF CARE LISTED BELOW. Current Visit: No Qualifiers: Anemia type: unspecified type Qualified Code(s): D64.9 - Anemia, unspecified (5) Dementia, Alzheimer's, with behavior disturbance Status: Chronic Assessment and plan: SEE PLAN OF CARE LISTED BELOW. Current Visit: No (6) Pneumonia Status: Acute Assessment and plan: SEE PLAN OF CARE LISTED BELOW. Current Visit: Yes Cardiology - PN: Subj Interval history: PRIMARY TOOL DIE MAKER: DR. PRESTON (NEW) PCP: DR. MARGY CHANDLER CARDIOLOGY CONSULT NOTE: NSTEMI, PNEUMONIA, ADVANCED DEMENTIA SUMMARY: Ms. Cunha is a 80-year-old black female who is a skilled nursing resident with advanced dementia and is a DO NOT RESUSCITATE. Risk factors significant for: Advanced age, hypertension, diabetes, family CAD. Past medical history includes CVA, PAD, thyroid disorder. Patient was admitted to hospital on 08/[address] Chandler's service with altered mental status. Chest x-ray with atypical pulmonary edema, and CT of the head without acute process or ischemic finding. Since admission, serial cardiac biomarkers have revealed evidence of NSTEMI initial troponin of 8.6 trending up to 23 with positive CPK and MB. Patient also has a right lung pneumonia and is being treated with IV antibiotics. Echocardiogram on 08/06 LV ejection fraction of 20% with severe global hypokinesis. Due to age, advanced dementia she is not a candidate for cardiac catheterization and has been treated medically. She is currently not taking any oral medications. On exam, she opens eyes only to verbal stimuli but does not interact or have purposeful response. No family is present. Patient is scheduled for a swallowing study today and will most likely need PEG tube placement in the near future. Chest x-ray today with increased pulmonary opacities suggestive of pulmonary edema/effusion. We have attempted to speak with regarding patient's condition and prognosis, but he is not present this morning. I tried to phone him, there was no answer. We also attempted to reach patient's sister by telephone, but number provided in record is a disconnected phone number. ASSESSMENT/PLAN: 1. NSTEMI-this is being managed medically due to the patient's comorbidities, dementia, p.o. tolerance from the mental status. 2. CHF-on exam she does not appear to be volume overloaded. We will need to continue to watch her fluid status. Because of her mental status she does not take a lot of oral fluids. 3. HYPERTENSION- Blood pressure appears to be well controlled at this time. Continue to monitor closely and adjust medication regimen accordingly. 4. TACHYCARDIA- We will monitor ECG close and observe for atrial fibrillation or other arrhythmia. 5. DEMENTIA- Known history of advanced dementia with decreased responsiveness this admission.The degree and chronicity of this is not clear to me. I tried to reach family to clarify this, nursing is also unclear about this. Dr. Chandler knows the patient and is handling this. 6. ANEMIA- Chronicity of this is unknown. 7. DIABETES - Continue current plan of care. 8. HYPERLIPIDEMIA - Continue current plan of care. 9. Renal insufficiency-this appears to be somewhat acute on chronic, we will follow her creatinine. Exam (Progress Note) - Constitutional Vitals: Period Temp Pulse Resp BP Sys/Alba Pulse Ox Last 24 Hr 97.0 F-98.1 F 78-121 16-27 87-129/54-99 91-100 Exam: General appearance: normal weight, no acute distress - Head Head exam: Present: normal inspection, normocephalic, atraumatic. Absent: hematoma, laceration - Eye Eye exam: Present: EOMI. Absent: conjunctival injection, nystagmus, periorbital swelling, scleral icterus, laceration to eyelids Pupils: Present: PERRL. Absent: constricted, dilated, fixed, irregular, unequal - ENT ENT exam: Present: normal exam, normal external ear exam - Neck Neck exam: Present: normal inspection. Absent: lymphadenopathy, meningismus, tenderness, thyromegaly - Respiratory Respiratory exam: Present: clear to auscultation bilaterally. Absent: accessory muscle use, chest wall tenderness - Cardiovascular Cardiovascular exam: Present: Tachycardic rate with seemingly regular rhythm. Absent: carotid bruit, gallop, JVD, rubs - GI/Abdominal GI/Abdominal exam: Present: normal bowel sounds, soft. Absent: distended, firm , guarding, hernia, mass, tenderness, rebound. - Extremities Exam Extremities exam: Present: Right foot is wrapped in gauze, there are decreased bilateral pulses. Absent: calf tenderness, edema - Back Exam Back exam: Present: normal inspection. Absent: muscle spasm, vertebral tenderness - Neurological Exam Neurological exam: Nonconversant, not interactive, opens eyes but no deliberate interaction, without resting or intention tremor - Psychiatric Psychiatric exam: Unable to assess due to mental status - Skin Skin exam: Present: normal color, warm, dry, intact, right foot is wrapped in gauze. Result/EKG - Labs CBC & BMP: 08/07/16 05:52 08/07/16 01:01 Lab Results: I have reviewed the past 24 hour labs Labs: Laboratory Results - last 24 hr 08/07/16 08/07/16 08/07/16 11:34 12:29 15:49 POC Glucose 317 H 322 H Total Creatine Kinase 1704 H CK-MB (CK-2) 41.2 H D CK and CKMB Interp 2.4 Troponin I 23.300 H 08/07/16 20:36 POC Glucose 241 H Total Creatine Kinase CK-MB (CK-2) CK and CKMB Interp Troponin I - Diagnostic Findings Procedure: Chest x-ray: image reviewed by me, report reviewed by me - EKG EKG results: interpreted by me EKG shows: tachycardia (Sinus tachycardia) IReuben Jennifer, MD, personally performed the services described in this documentation, ascribed by Carrol Joseph RN in my presence, and it is both accurate and complete .
[2016-08-08 09:56] LABS: Calcium 8.9 MG/DL (8.5-10.1); Magnesium 1.9 MG/DL (1.8-2.4); Osmolality,Calculated 301.6 MOS/KG (273-304); Potassium 3.9 MMOL/L (3.5-5.1)
--- NOTE | 2016-08-08 11:33 | Physician Query Form ---
CLICK EDIT DOCUMENT TO SELECT QUERY ANSWER --> OK --> SIGN Zully Voss RN Clinical Bookkeeping Manager W) [phone] (f) [phone] [email or web address] PROVIDERS: Make your selection(s) from the choices in EACH section by typing an "x" and enter comments in the comment section. Please use your independent medical judgment in providing your response. This request does not imply that any particular answer is desired or expected. CLINICAL INDICATORS: (Providers should not edit this section) Based on lab results of creatinine on admission of 1.50 and increased to 2.60 with a GFR of 20. Pt. treated with IV fluids of 1/2 Normal Saline. Clarify which of the following most accurately represents the patient's renal status: ( ) Acute kidney injury (non-traumatic) ( ) Acute renal failure (x ) Acute renal failure with underlying Chronic Kidney Disease (CKD) - please provide stage below ( ) CKD - please provide stage below ( ) Other, please specify: ( ) Clinically unable to determine Chronic Kidney Disease Stages Source: National Kidney Disease Foundation ( ) Stage I (eGFR > or = 90) ( ) Stage II (eGFR 60 - 89) ( ) Stage III (eGFR 30 - 59) (x ) Stage IV (eGFR 15 - 29) ( ) Stage V (eGFR < 15 or dialysis) COMMENTS: PLEASE ALSO DOCUMENT RESPONSE IN PROGRESS NOTES AND/OR DISCHARGE SUMMARY Use of terms such as suspected, likely, or probable (associated with a specific diagnosis that is being evaluated, monitored, or treated as if it exists) are acceptable and can be restated in the discharge summary if not ruled out. MTDD
--- NOTE | 2016-08-08 11:39 | Physician Query Form ---
CLICK EDIT DOCUMENT TO SELECT QUERY ANSWER --> OK --> SIGN Zully Voss RN Clinical Pin Inserter Regulator W) [phone] (f) [phone] [email or web address] PROVIDERS: Make your selection(s) from the choices in EACH section by typing an "x" and enter comments in the comment section. Please use your independent medical judgment in providing your response. This request does not imply that any particular answer is desired or expected. CLINICAL INDICATORS: (Providers should not edit this section) Based on documentation of "CHF", [id number], Echo showed EF of 20% with Grade III/ IV diastolic dysfunction. Pt. treated with IV Lasix. Please provide further specificity regarding CHF. ACUITY: (x ) Acute ( ) Chronic ( ) Acute on Chronic ( ) Clinicallly unable to determine TYPE: ( ) Systolic (HFrEF - heart failure with reduced systolic function/EF) ( ) Diastolic (HFpEF - heart failure with preserved systolic function/EF) (x ) Combined Systolic/Diastolic ( ) Other, please specify: ( ) Clinically unable to determine ( ) The patient does NOT have CHF COMMENTS: PLEASE ALSO DOCUMENT RESPONSE IN PROGRESS NOTES AND/OR DISCHARGE SUMMARY Use of terms such as suspected, likely, or probable (associated with a specific diagnosis that is being evaluated, monitored, or treated as if it exists) are acceptable and can be restated in the discharge summary if not ruled out. MTDD
[2016-08-08] MEDS: COLLAGENASE OINT 30 GM TUBE TOP SCH (12:35)
[2016-08-08] MEDS: DESITIN 4OZ/NYSTATIN 15 GRAM MIXTURE PASTE TOP SCH ×2 (12:36→21:14)
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
[2016-08-09] MEDS: ALBUTEROL/IPRATROPIUM 3 ML NEB RESP TX SCH ×4 (01:55→19:34)
[2016-08-09] MEDS: METOPROLOL TARTRATE 5 MG/5 ML VIAL IV SCH ×3 (05:07→21:10)
[2016-08-09] MEDS ORDERED: FUROSEMIDE 40 MG/4 ML VIAL IV ONE (07:13)
[2016-08-09 07:17] LABS: Basophils % 0.1 % (0.0-0.8); Hematocrit 30.1 VOL% (35.7-47.0); Hemoglobin 9.8 GM/DL (12.0-16.0); Immature Granulocytes % 2.2 %; Immature Granulocytes Absolute 0.31 #; Lymphocytes # 1.9 10*3/uL (1.4-4.0); Lymphocytes % 13.4 % (21.3-54.2); Mean Corpuscular HGB Conc 32.6 GM/DL (32-36); Mean Corpuscular Hemoglobin 26 PG (27-34); Mean Corpuscular Volume 78.6 FL (87-102); Mean Platelet Volume 11.4 FL (9.6-12.0); Monocytes # 1.4 10*3/uL (0.11-0.8); NRBC # 1.88 10*3/uL; Neutrophils # 10.2 10*3/uL (1.4-7.4); Neutrophils % 74.3 % (38.7-73.9); Platelet Count 343 T/CUMM (130-400); Red Blood Count 3.83 MC/CUMM (3.8-5.5); White Blood Count 13.8 T/CUMM (4-12)
--- NOTE | 2016-08-09 07:17 | Family Practice Progress Note ---
Family Practice - PN: Subj Interval history: Patient had a good night according to her and certainly sleeping soundly. Chest x-ray yesterday shows increased pleural effusions bilaterally and she certainly appears wet. I have ordered a repeat BMP and I will give her 1 dose of Lasix this morning. She is still unresponsive which is been present since admission. Exam (Progress Note) - Constitutional Vitals: Period Temp Pulse Resp BP Sys/Alba Pulse Ox Last 24 Hr 96.7 F-98.8 F 74-124 16-22 97-123/56-79 94-100 Exam: Objectively well-developed black female who is minimally responsive this morning. She would not open her eyes to speech. Cardiovascular: Heart rates rapid but there is a 2-3 over systolic ejection murmur left base. Respiratory: She has bibasilar rales. Abdomen: Abdomen soft and nontender to palpation. Results - Labs CBC & BMP: 08/08/16 09:03 08/08/16 09:03 Lab Results: I have reviewed the past 24 hour labs - Diagnostic Findings Procedure: Chest x-ray: report reviewed by me (Chest x-ray yesterday shows bilateral pleural effusions and pulmonary vascular congestion.) Assessment and Plan (1) Non-STEMI (non-ST elevated myocardial infarction) Status: Acute Assessment and plan: 08/08/2016: Patient's blood pressure is well maintained. She did have decreased EF of 20% on echocardiogram yesterday. Patient understands the critical nature of her present illness. 08/09/2016: Patient's vital signs are stable and she has no dyspnea at rest this morning. Current Visit: Yes (2) Pneumonia Status: Acute Assessment and plan: 08/08/2016: We will repeat chest x-ray today. Blood cultures are negative thus far. 08/09/2016: Patient's cultures were all negative. I suspect she may have an atypical pulmonary edema. Current Visit: Yes (3) Severe dementia Status: Chronic Assessment and plan: 08/09/2016: This is a chronic problem Current Visit: Yes
[2016-08-09 07:38] LABS: Band Neutrophils 2 % (0-10); Giant Platelets Few; Hypochromasia 1+; Lymphocytes 12 % (20-55); Nucleated Red Blood Cells 18 (0-5); Platelet Estimate Adequate; Segmented Neutrophils 75 % (50-85); Total Cells Counted 100
[2016-08-09 07:55] LABS: Calcium 8.8 MG/DL (8.5-10.1); Magnesium 2.2 MG/DL (1.8-2.4); Osmolality,Calculated 312.4 MOS/KG (273-304); Potassium 4.4 MMOL/L (3.5-5.1)
[2016-08-09] MEDS ORDERED: FUROSEMIDE 40 MG/4 ML VIAL IV SCH (08:00)
--- NOTE | 2016-08-09 10:12 | Gastrointestinal Progress Note ---
Assessment and Plan (1) Failure to thrive Status: Acute Assessment and plan: 08/09-No changes in current status. Awaiting speech therapy evaluation. Plan and addendum to follow by Dr Baker. 08/08-history of dementia with recent decline in mental status and onset of pneumonia. No oral intake at this time. Speech therapy evaluation pending. Noted to be on Pletal. Possible PEG placement following ST eval and further discussion with family members. Plan an addendum to followed by Dr. Baker. Current Visit: Yes Gastroenterology - PN: Subj Interval history: CC: Failure to thrive Patient is seen lying in bed with spouse at side. She had an uneventful night per spouse. She still unresponsive to family and staff. She does not open eyes but does move around to verbal/tactile stimuli. She has not had speech therapy evaluation at this point and uncertain as to if patient is able to participate with this at this point. Abdomen is soft, nontender. ROS: No acute distress noted Exam (Progress Note) - Constitutional Vitals: Period Temp Pulse Resp BP Sys/Alba Pulse Ox Last 24 Hr 96.7 F-98.8 F 74-124 16-22 97-123/56-79 96-100 General appearance: normal weight, no acute distress - Head Head exam: Present: normal inspection, normocephalic - Eye Eye exam: Present: other (lids and conjunctiva unremarkable). Absent: scleral icterus - ENT ENT exam: Present: normal exam, normal oropharynx - Neck Neck exam: Present: normal inspection - Respiratory Respiratory exam: Present: clear to auscultation bilaterally. Absent: rales, rhonchi, wheezes - Cardiovascular Cardiovascular exam: Present: regular rate and rhythm. Absent: diastolic murmur , JVD, systolic murmur - GI/Abdominal GI/Abdominal exam: Present: normal bowel sounds, soft. Absent: ascites, distended, mass, organomegaly, tenderness - Extremities Exam Extremities exam: Present: normal inspection, full ROM - Back Exam Back exam: Present: normal inspection - Neurological Exam Neurological exam: Present: alert, altered - Psychiatric Psychiatric exam: Present: other - Skin Skin exam: Present: normal color, warm, dry Results - Labs CBC & BMP: 08/09/16 07:02 08/09/16 07:02 Lab Results: I have reviewed the past 24 hour labs
[2016-08-09] MEDS: INSULIN LISPRO 100 UNIT/ML SUBCUT SCH ×4 (10:42→21:09)
[2016-08-09] MEDS: PANTOPRAZOLE 40 MG VIAL IV SCH (10:43)
[2016-08-09] MEDS: ENOXAPARIN 30 MG/0.3 ML SYRINGE SUBCUT SCH (10:43)
[2016-08-09] MEDS: NITROGLYCERIN 2% OINT 1 INCH/GM PACK TOP SCH ×2 (10:47→21:10)
[2016-08-09] MEDS: COLLAGENASE OINT 30 GM TUBE TOP SCH (10:48)
[2016-08-09] MEDS: DESITIN 4OZ/NYSTATIN 15 GRAM MIXTURE PASTE TOP SCH ×2 (10:48→21:10)
[2016-08-09] MEDS: AZITHROMYCIN 250 MG TABLET PO SCH (10:49)
[2016-08-09] MEDS: cefTRIAXone 1,000 MG in SODIUM CHLORIDE 0.9% 100 ML IV SCH (11:58)
[2016-08-09] MEDS: ASPIRIN 300 MG SUPP RECTAL SCH (12:25)
[2016-08-09] MEDS: SODIUM CHLORIDE 0.45% 1,000 ML IV SCH (17:56)
--- NOTE | 2016-08-09 20:20 | Cardiology Progress Note ---
Jake Young Vanessa, RN, am scribing for, and in the presence of, Mony Alexis MD 20:20. Assessment and Plan - Time spent with patient Time spent with patient: Greater than 30 minutes (1) Non-STEMI (non-ST elevated myocardial infarction) Status: Acute Assessment and plan: SEE PLAN OF CARE LISTED BELOW. Current Visit: Yes (2) Hypertension Status: Chronic Assessment and plan: SEE PLAN OF CARE LISTED BELOW. Current Visit: No (3) Diabetes Status: Chronic Assessment and plan: SEE PLAN OF CARE LISTED BELOW. Current Visit: No (4) Anemia Status: Acute Assessment and plan: SEE PLAN OF CARE LISTED BELOW. Current Visit: No Qualifiers: Anemia type: unspecified type Qualified Code(s): D64.9 - Anemia, unspecified (5) Dementia, Alzheimer's, with behavior disturbance Status: Chronic Assessment and plan: SEE PLAN OF CARE LISTED BELOW. Current Visit: No (6) Pneumonia Status: Acute Assessment and plan: SEE PLAN OF CARE LISTED BELOW. Current Visit: Yes Cardiology - PN: Subj Interval history: PRIMARY FULL STACK SOFTWARE DEVELOPER: DR. PRESTON (NEW) PCP: DR. MARGY CHANDLER CARDIOLOGY CONSULT NOTE: NSTEMI, PNEUMONIA, ADVANCED DEMENTIA SUMMARY: Ms. Cunha is a 80-year-old black female who is a [facility] resident with advanced dementia and is a DO NOT RESUSCITATE. Risk factors significant for: Advanced age, hypertension, diabetes, family CAD. Past medical history includes CVA, PAD, thyroid disorder. Patient was admitted to hospital on 08/[address] Chandler's service with altered mental status. Chest x-ray with atypical pulmonary edema, and CT of the head without acute process or ischemic finding. Since admission, serial cardiac biomarkers have revealed evidence of NSTEMI initial troponin of 8.6 trending up to 23 with positive CPK and MB. Patient also has a right lung pneumonia and is being treated with IV antibiotics. Echocardiogram on 08/06 LV ejection fraction of 20% with severe global hypokinesis. Due to age, advanced dementia she is not a candidate for cardiac catheterization and has been treated medically. She is currently not taking any oral medications. AUGUST 09, 2016: Ms. Cunha is seen resting quietly without distress this morning. Her is present at bedside. According to patient's , patient rested well overnight without distress or difficulty. Patient has been evaluated by gastroenterology for PEG tube placement, and reports this morning that this is not something he and family wish to pursue at this time. Chest x-ray yesterday with increased pulmonary congestion, and she is receiving IV Lasix dose this morning. [id number] mmHg. Slightly tachycardic, pulse rates 80-110. WBC decreased today to 13,800 from 18,300. Creatinine trending upward, and today is increased from 2.6 to 2.8. Creatinine was 1.5 on admission 08/06. ASSESSMENT/PLAN: 1. NSTEMI-this is being managed medically due to the patient's comorbidities, dementia, p.o. tolerance from the mental status. 2. CHF-on exam she does not appear to be volume overloaded. We will need to continue to watch her fluid status. Because of her mental status she does not take a lot of oral fluids. 3. HYPERTENSION- Blood pressure appears to be well controlled at this time. Continue to monitor closely and adjust medication regimen accordingly. 4. TACHYCARDIA- We will monitor ECG close and observe for atrial fibrillation or other arrhythmia. 5. DEMENTIA- Known history of advanced dementia with decreased responsiveness this admission.The degree and chronicity of this is not clear to me. I tried to reach family to clarify this, nursing is also unclear about this. Dr. Chandler knows the patient and is handling this. 6. ANEMIA- Chronicity of this is unknown. 7. DIABETES - Continue current plan of care. 8. HYPERLIPIDEMIA - Continue current plan of care. 9. RENAL INSUFFICIENCY-this appears to be somewhat acute on chronic, we will follow her creatinine. Exam (Progress Note) - Constitutional Vitals: Period Temp Pulse Resp BP Sys/Alba Pulse Ox Last 24 Hr 96.7 F-98.8 F 74-124 16-22 97-123/56-79 94-100 Exam: General appearance: normal weight, no acute distress - Head Head exam: Present: normal inspection, normocephalic, atraumatic. Absent: hematoma, laceration - Eye Eye exam: Present: EOMI. Absent: conjunctival injection, nystagmus, periorbital swelling, scleral icterus, laceration to eyelids Pupils: Present: PERRL. Absent: constricted, dilated, fixed, irregular, unequal - ENT ENT exam: Present: normal exam, normal external ear exam - Neck Neck exam: Present: normal inspection. Absent: lymphadenopathy, meningismus, tenderness, thyromegaly - Respiratory Respiratory exam: Present: clear to auscultation bilaterally. Absent: accessory muscle use, chest wall tenderness - Cardiovascular Cardiovascular exam: Present: Tachycardic rate with seemingly regular rhythm. Absent: carotid bruit, gallop, JVD, rubs - GI/Abdominal GI/Abdominal exam: Present: normal bowel sounds, soft. Absent: distended, firm , guarding, hernia, mass, tenderness, rebound. - Extremities Exam Extremities exam: Present: Right foot is wrapped in gauze, there are decreased bilateral pulses. Absent: calf tenderness, edema - Back Exam Back exam: Present: normal inspection. Absent: muscle spasm, vertebral tenderness - Neurological Exam Neurological exam: Nonconversant, not interactive, opens eyes but no deliberate interaction, without resting or intention tremor - Psychiatric Psychiatric exam: Unable to assess due to mental status - Skin Skin exam: Present: normal color, warm, dry, intact, right foot is wrapped in gauze. Result/EKG - Labs CBC & BMP: 08/09/16 07:02 08/09/16 07:02 Lab Results: I have reviewed the past 24 hour labs Labs: Laboratory Results - last 24 hr 08/08/16 08/08/16 08/08/16 07:33 09:03 09:03 WBC 18.3 H D RBC 4.03 Hgb 10.6 L Hct 31.6 L MCV 78.4 L MCH 26 L MCHC 33.5 RDW 15.7 Plt Count 378 MPV 10.7 Neut % (Auto) 71.9 Lymph % (Auto) 11.5 L Kershaw % (Auto) 15.3 H Eos % (Auto) 0.0 Baso % (Auto) 0.2 Neut # (Auto) 13.2 H Lymph # (Auto) 2.1 [place]haw # (Auto) 2.8 H Eos # (Auto) 0.0 Baso # (Auto) 0.0 Immature Gran % 1.1 Nucleated RBC % 4.0 Immature Gran # 0.20 Nucleated RBCs # 0.73 Sodium 146 H Potassium 3.9 Chloride 108 H Carbon Dioxide 24 Anion Gap 17.9 H BUN 36 H Creatinine 2.60 H GFR Calculation 20 BUN/Creatinine Ratio 13.00 Glucose 170 H POC Glucose 168 H Calculated Osmolality 301.6 Calcium 8.9 Magnesium 1.9 08/08/16 08/08/16 08/08/16 10:48 17:27 19:06 WBC RBC Hgb Hct MCV MCH MCHC RDW Plt Count MPV Neut % (Auto) Lymph % (Auto) [place] % (Auto) Eos % (Auto) Baso % (Auto) Neut # (Auto) Lymph # (Auto) [place] # (Auto) Eos # (Auto) Baso # (Auto) Immature Gran % Nucleated RBC % Immature Gran # Nucleated RBCs # Sodium Potassium Chloride Carbon Dioxide Anion Gap BUN Creatinine GFR Calculation BUN/Creatinine Ratio Glucose POC Glucose 186 H 175 H 160 H Calculated Osmolality Calcium Magnesium 08/09/16 07:02 WBC 13.8 H RBC 3.83 Hgb 9.8 L Hct 30.1 L MCV 78.6 L MCH 26 L MCHC 32.6 RDW 16.0 Plt Count 343 MPV 11.4 Neut % (Auto) 74.3 H Lymph % (Auto) 13.4 L [place] % (Auto) 10.0 Eos % (Auto) 0.0 Baso % (Auto) 0.1 Neut # (Auto) 10.2 H Lymph # (Auto) 1.9 [place]ershaw # (Auto) 1.4 H Eos # (Auto) 0.0 Baso # (Auto) 0.0 Immature Gran % 2.2 Nucleated RBC % 13.6 Immature Gran # 0.31 Nucleated RBCs # 1.88 Sodium Potassium Chloride Carbon Dioxide Anion Gap BUN Creatinine GFR Calculation BUN/Creatinine Ratio Glucose POC Glucose Calculated Osmolality Calcium Magnesium - Diagnostic Findings Procedure: Chest x-ray: image reviewed by me, report reviewed by me - EKG EKG results: interpreted by me, no acute changes EKG shows: tachycardia (sinus tachycardia) IReuben Jennifer, MD, personally performed the services described in this documentation, ascribed by Carrol Joseph RN in my presence, and it is both accurate and complete .
[2016-08-10] MEDS: ALBUTEROL/IPRATROPIUM 3 ML NEB RESP TX SCH ×2 (01:12→07:32)
[2016-08-10] MEDS: METOPROLOL TARTRATE 5 MG/5 ML VIAL IV SCH (05:55)
[2016-08-10 05:56] LABS: Basophils % 0.3 % (0.0-0.8); Eosinophils % 0.1 % (0.00-10.9); Hematocrit 30.7 VOL% (35.7-47.0); Hemoglobin 10.2 GM/DL (12.0-16.0); Immature Granulocytes % 1.9 %; Immature Granulocytes Absolute 0.27 #; Lymphocytes # 2.5 10*3/uL (1.4-4.0); Lymphocytes % 17.7 % (21.3-54.2); Mean Corpuscular HGB Conc 33.2 GM/DL (32-36); Mean Corpuscular Hemoglobin 26 PG (27-34); Mean Corpuscular Volume 78.3 FL (87-102); Mean Platelet Volume 11.8 FL (9.6-12.0); Monocytes # 1.3 10*3/uL (0.11-0.8); NRBC # 3.75 10*3/uL; Neutrophils # 9.9 10*3/uL (1.4-7.4); Platelet Count 316 T/CUMM (130-400); Red Blood Count 3.92 MC/CUMM (3.8-5.5); Red Cell Distribution Width 16.1 % (9.3-17.3); White Blood Count 13.9 T/CUMM (4-12)
[2016-08-10 06:22] LABS: Hypochromasia 1+; Lymphocytes 16 % (20-55); Nucleated Red Blood Cells 28 (0-5); Segmented Neutrophils 79 % (50-85); Total Cells Counted 100
[2016-08-10 06:23] LABS: Acanthocytes Few; Microcytosis Slight; Platelet Estimate Normal
[2016-08-10 06:26] LABS: Magnesium 2.4 MG/DL (1.8-2.4); Osmolality,Calculated 325.1 MOS/KG (273-304)
--- NOTE | 2016-08-10 07:43 | Discharge Summary ---
Hospital Course - Hospital Course Hospital Course: Patient is a 80-year-old black female presents emergency room day of admission with decreased responsiveness. Patient had pinpoint pupils and no response to painful or verbal stimuli. CT of the brain revealed no acute abnormality. EKG was obtained in the emergency room which show her to have right bundle mervat block but no acute ischemic changes. Cardiac isoenzymes were followed and she indeed had a non-STEMI. Patient was seen in consultation by Dr. Filipe Armstrong. Patient has severe dementia and family did not want any heroic measures. Patient has done well after her ME. She did have a low EF on echocardiogram. She was started on diuretics and she is not having any dyspnea at rest. She is not able to eat or drink and family does not want a feeding tube placed. [facility]. Diagnosis - Discharge Diagnosis (1) Non-STEMI (non-ST elevated myocardial infarction) Status: Acute (2) Pneumonia Status: Acute (3) Severe dementia Status: Chronic Discharge Plan - Discharge Data Disposition: Disch/Xfer to Snf Condition at Discharge: Critical Discharge Diet: other (May have sips of clear liquids if she tolerates.) Activity: other (Patient is bedfast.) - Discharge Medications New Albuterol/Ipratropium Neb [Duoneb] 3 ml RESP TX RT Q6H Aspirin Supp 300 mg RECTAL DAILY supp Furosemide Inj [Lasix Inj] 40 mg IM DAILY #30 vial Morphine Sulfate [Morphine Conc Liquid] 15 mg PO Q4HR PRN #60 ml PRN Reason: Shortness Of Breath Collagenase Oint [Santyl Oint] 1 applic TOP DAILY applic Discontinued Amoxicillin Cap/Tab 500 mg PO TID Cholecalciferol (Vitamin D3) [Vitamin D3 Chew Tab] 1,000 unit PO DAILY Cilostazol [Pletal] 100 mg PO BID Docusate Sodium 100 mg PO DAILY Gabapentin Cap/Tab [Neurontin Cap/Tab] 200 mg PO BEDTIME Hydrocodone/Acetaminophen [Hydrocodon-Acetaminophen 5-325] 0.5 tablet PO TID Melatonin 5 mg PO BEDTIME OLANZapine [Olanzapine] 7.5 mg PO BEDTIME OLANZapine TAB [ZyPREXA Tab] 2.5 mg PO DAILY Duloxetine HCl [Duloxetine] 20 mg PO DAILY glipiZIDE [Glipizide Xl] 10 mg PO BID Donepezil HCl 10 mg PO BEDTIME Lovastatin 10 mg PO BEDTIME Potassium Chloride 10 meq PO MOWEFR Multivit-Min/Iron/Folic/Lutein [Centrum Silver Women Tablet] 1 each PO DAILY Memantine [Namenda] 10 mg PO BID hydroCHLOROthiazide [Hydrochlorothiazide] 12.5 mg PO DAILY metFORMIN [Glucophage] 500 mg PO BID W/MEALS Aspirin EC Tab 81 mg PO DAILY Benzonatate [Tessalon] 100 mg PO Q8HR PRN PRN Reason: Cough Isosorbide Dinitrate [Isordil] 5 mg PO TID Carvedilol [Coreg] 6.25 mg PO BID W/MEALS Divalproex Sprinkle [Depakote Sprinkle] 125 mg PO TID capsule Zaleplon [Sonata] 5 mg PO BEDTIME PRN #30 capsule PRN Reason: Sleep LORazepam TAB [Ativan Tab] 0.5 mg PO Q8HR PRN #30 tablet PRN Reason: Agitation - Follow Up or Referral - Forms/Instructions Exam - Constitutional Vitals: Period Temp Pulse Resp BP Sys/Alba Pulse Ox Last 24 Hr 97.5 F-97.8 F 87-124 16-30 112-125/67-82 92-100 Exam: Objectively well-developed black female who is minimally responsive this morning. She did open her eyes this morning. Her son from dialysis in the room with her. I discussed feeding tube placement with him and he told me that he and his father both did not want her to have that done. Cardiovascular: Heart rates rapid but there is a 2-3 over systolic ejection murmur left base. Respiratory: She has bibasilar rales. Abdomen: Abdomen soft and nontender to palpation. Discharge Results Procedures and tests throughout hospitalization: Pending Orders 08/11/16 04:00 Basic Metabolic Panel w/Mg IN AM Comp Blood Count Auto Diff IN AM Labs on day of discharge: Labs from last 24 hours 08/10/16 08/10/16 08/09/16 05:17 05:17 19:38 WBC 13.9 H RBC 3.92 Hgb 10.2 L Hct 30.7 L MCV 78.3 L MCH 26 L MCHC 33.2 RDW 16.1 Plt Count 316 MPV 11.8 Neut % (Auto) 71.0 Lymph % (Auto) 17.7 L [place] % (Auto) 9.0 Eos % (Auto) 0.1 Baso % (Auto) 0.3 Neut # (Auto) 9.9 H Lymph # (Auto) 2.5 [place] # (Auto) 1.3 H Eos # (Auto) 0.0 Baso # (Auto) 0.0 Total Counted 100 Immature Gran % 1.9 Nucleated RBC % 26.9 Immature Gran # 0.27 Segmented Neutrophils 79 Lymphocytes 16 L Monocytes 5 Nucleated RBCs 28 H Nucleated RBCs # 3.75 Platelet Estimate Normal Hypochromasia 1+ Microcytosis Slight Acanthocytes (Spur) Few Sodium 149 H Potassium 4.0 Chloride 110 H Carbon Dioxide 22 Anion Gap 21.0 H BUN 80 H D Creatinine 2.90 H GFR Calculation 18 BUN/Creatinine Ratio 27.00 H Glucose 214 H POC Glucose 238 H Calculated Osmolality 325.1 H Calcium 9.0 Magnesium 2.4 08/09/16 08/09/16 08/09/16 15:25 11:02 08:10 WBC RBC Hgb Hct MCV MCH MCHC RDW Plt Count MPV Neut % (Auto) Lymph % (Auto) [place] % (Auto) Eos % (Auto) Baso % (Auto) Neut # (Auto) Lymph # (Auto) [place] # (Auto) Eos # (Auto) Baso # (Auto) Total Counted Immature Gran % Nucleated RBC % Immature Gran # Segmented Neutrophils Lymphocytes Monocytes Nucleated RBCs Nucleated RBCs # Platelet Estimate Hypochromasia Microcytosis Acanthocytes (Spur) Sodium Potassium Chloride Carbon Dioxide Anion Gap BUN Creatinine GFR Calculation BUN/Creatinine Ratio Glucose POC Glucose 260 H 202 H 254 H Calculated Osmolality Calcium Magnesium 08/09/16 07:02 WBC RBC Hgb Hct MCV MCH MCHC RDW Plt Count MPV Neut % (Auto) Lymph % (Auto) [place] % (Auto) Eos % (Auto) Baso % (Auto) Neut # (Auto) Lymph # (Auto) [place] # (Auto) Eos # (Auto) Baso # (Auto) Total Counted Immature Gran % Nucleated RBC % Immature Gran # Segmented Neutrophils Lymphocytes Monocytes Nucleated RBCs Nucleated RBCs # Platelet Estimate Hypochromasia Microcytosis Acanthocytes (Spur) Sodium 147 H Potassium 4.4 Chloride 108 H Carbon Dioxide 20 L Anion Gap 23.4 H BUN 58 H D Creatinine 2.80 H GFR Calculation 18 BUN/Creatinine Ratio 20.00 Glucose 196 H POC Glucose Calculated Osmolality 312.4 H Calcium 8.8 Magnesium 2.2 Worsening renal function is noted. DS: Provider Date of admission: 08/06/16 11:29 Primary care physician: . No PCP Attending physician on admission: Eliseo Warren MD Consults: 08/06/16 13:33 Consult to Dietitian [CONS] Routine Reason for Dietitian: Dietary Consult 08/06/16 15:20 Consult to Physician [CONS] Routine Comment: TI elevated. Note pt. is DNR Consulting Provider: Cardiology - [facility] Person Notified: Patti Date Notified: 08/06/16 Time Notified: 17:23 08/08/16 07:08 Consult to Physician [CONS] Routine Comment: Consulting Provider: Mckinley Baker Person Notified: kerry Date Notified: 08/08/16 Time Notified: 08:45 Discharging clinician: Eliseo Warren MD Expected date of discharge: 08/10/16
[2016-08-10] MEDS: INSULIN LISPRO 100 UNIT/ML SUBCUT SCH (09:14)
[2016-08-10] MEDS: ASPIRIN 300 MG SUPP RECTAL SCH (09:14)
[2016-08-10] MEDS: PANTOPRAZOLE 40 MG VIAL IV SCH (09:14)
[2016-08-10] MEDS: ENOXAPARIN 30 MG/0.3 ML SYRINGE SUBCUT SCH (09:14)
[2016-08-10] MEDS: NITROGLYCERIN 2% OINT 1 INCH/GM PACK TOP SCH (09:15)
[2016-08-10] MEDS: cefTRIAXone 1,000 MG in SODIUM CHLORIDE 0.9% 100 ML IV SCH (09:15)
[2016-08-10] MEDS: DESITIN 4OZ/NYSTATIN 15 GRAM MIXTURE PASTE TOP SCH (09:16)
[2016-08-10] MEDS: COLLAGENASE OINT 30 GM TUBE TOP SCH (09:16)
[2016-08-10] MEDS: AZITHROMYCIN 250 MG TABLET PO SCH (09:17)
[2016-08-10 09:46] VITALS: BP 146/90
== END 2016-08-10 10:40 | DRG 280 ==
LOC: EDBD → EDUNIT# → N.ED 09:03 → N.EDINP 11:29 → N.2E 12:16
PROVIDERS: ADMIT Family Medicine; ATTEND Family Medicine